=== PATIENT | female | born 1980 | race Two or more races ===

== ENCOUNTER 2024-12-23 04:28 | Day surgery (SDC) | payer OTHER ==
[2024-12-20 10:41] LABS: BASO % 0.5 % (0.1-1.2); EOS # 0.08 (0.04-0.54); HEMOGLOBIN 12.4 g/dL (11.2-15.7); LYMPH # 1.41 (1.18-3.74); MEAN CORPUSCULAR HEMOGLOBIN 28.6 pg (25.6-32.2); MONO % 6.4 % (4.7-12.5); NEUT # 5.78 (1.56-6.13); NEUT % 73.8 % (34.0-71.1); PLATELET COUNT 365 K/uL (163-369); RED BLOOD COUNT 4.33 M/uL (3.93-5.22); RED CELL DISTRIBUTION WIDTH 12.7 % (11.6-14.4)
[2024-12-20 10:43] LABS: PH,URINE 5.5 (5.0-8.0); URINE APPEARANCE Clear; URINE BILIRRUBIN Negative (NEGATIVE); URINE BLOOD Negative; URINE COLOR Dark Yellow; URINE GLUCOSE Negative (NEGATIVE); URINE KETONE Trace (NEGATIVE); URINE LEUKOCYTE Negative; URINE NITRATE Negative; URINE PROTEIN Trace (NEGATIVE)
[2024-12-20 10:44] LABS: URINE BACTERIA 390.4 uL (0.0-1933); URINE EPITHELIAL CELLS 34.1 uL (0.0-38.8); URINE RBC 37.5 uL (0.0-20.8); URINE WBC 6.9 uL (0.0-23.2)
[2024-12-20 10:46] LABS: URINE CAST 0.29 uL (0.0-1.40)
[2024-12-20 11:03] LABS: INR 1.03; PARTIAL THROMBOPLASTIN TIME 28.8 SECONDS (22.0-34.0); PROTHROMBIN TIME 11.2 SECONDS (9.0-11.5)
[2024-12-20 11:27] LABS: ALBUMIN 3.8 gm/dL (3.4-5.0); BILIRUBIN TOTAL 0.2 mg/dL (0.3-1.2); CALCIUM 9.6 mg/dL (8.5-10.1); CREATININE SERUM 0.82 mg/dL (0.55-1.02); GFR 75.39; GLOBULINA 3.6 G/DL (2.4-3.5); POTASSIUM 4.09 mEq/L (3.5-5.1); TOTAL PROTEIN 7.4 gm/dL (6.4-8.2)
[~2024-12-23 04:28] MED LIST: ATIVAN0.5 MG; BUSPIRONE HCL15 MG PO; LAMICTAL100 MG PO; LANOXIN125 MCG PO; LEXAPRO5 MG PO; NORFLEX30 MG/ML; PAMELOR25 MG PO; PAXIL20 MG; QULIPTA60 MG PO; ROSUVASTATIN CAL5 MG PO; TOPROL XL25 M1 PO; TORADOL60 MG
[2024-12-23] MEDS ORDERED: POVIDONE-IODINE 118 ML BOTT TOP ONE (11:51)
[2024-12-23] MEDS ORDERED: ONDANSETRON HCL 2 MG/ML VIAL IV ONE (13:15)
[2024-12-23] MEDS ORDERED: MORPHINE SULFATE 4 MG/ML VIAL IV ONE ×2 (14:05→15:05)
== END 2024-12-23 16:15 | disposition home or self-care (01) ==
LOC: CIR.AMB 04:28
PROVIDERS: ATTEND Obstetrics & Gynecology
DX: N93.8 Other specified abnormal uterine and vaginal bleeding (principal); N84.0 Polyp of corpus uteri; Z88.6 Allergy status to analgesic agent

== ENCOUNTER 2025-02-03 12:45 | Inpatient (IN) | payer OTHER ==
[~2025-02-03] VITALS: Ht 172.7 cm; Wt 91.6 kg
[2025-02-03 14:40] VITALS: BP 121/79
[2025-02-10] MEDS ORDERED: CEFAZOLIN SODIUM 1,000 MG VIAL ONE (08:43)
[2025-02-10] MEDS ORDERED: POVIDONE-IODINE 118 ML BOTT TOP ONE (10:12)
[2025-02-10] MEDS ORDERED: SUGAMMADEX SODIUM 200 MG/2 ML VIAL IV ONE (12:16)
[2025-02-10] MEDS ORDERED: MORPHINE SULFATE 4 MG/ML CARTRIDGE IV SCH (12:38)
[2025-02-10] MEDS ORDERED: PROMETHAZINE HCL 25 MG/ML AMPUL IV SCH (12:38)
[2025-02-10] MEDS ORDERED: ONDANSETRON HCL 2 MG/ML VIAL ONE (13:09)
[2025-02-10] MEDS ORDERED: MORPHINE SULFATE 4 MG/ML VIAL IV ONE ×3 (13:10→16:05)
[2025-02-10] MEDS ORDERED: ONDANSETRON HCL 2 MG/ML VIAL IV ONE (13:15)
[2025-02-10] MEDS ORDERED: ENALAPRILAT DIHYDRATE 1.25 MG/ML VIAL IV PRN (14:45)
[2025-02-10 16:58] LABS: BASO % 0.1 % (0.1-1.2); EOS # 0.01 (0.04-0.54); EOS % 0.1 % (0.7-7.0); LYMPH # 0.46 (1.18-3.74); LYMPH % 3.0 % (19.3-53.1); MEAN PLATELET VOLUME 9.10 fl (9.4-12.4); MONO # 0.75 (0.24-0.82); MONO % 4.9 % (4.7-12.5); NEUT # 14.15 (1.56-6.13); NEUT % 91.7 % (34.0-71.1); RED CELL DISTRIBUTION WIDTH 13.1 % (11.6-14.4)
[2025-02-10] MEDS ORDERED: ROSUVASTATIN CALCIUM 10 MG TABLET PO SCH (17:00)
[2025-02-10] MEDS ORDERED: BUSPIRONE HCL 15 MG TABLET PO SCH (17:00)
[2025-02-10 17:43] VITALS: BP 112/76
[2025-02-10 20:17] VITALS: BP 109/70
[2025-02-10] MEDS ORDERED: TRAMADOL HCL 50 MG TABLET PO SCH (21:00)
[2025-02-11] MEDS ORDERED: GABAPENTIN 300 MG CAPSULE PO SCH (01:00)
[2025-02-11 01:19] VITALS: BP 136/89
[2025-02-11] MEDS ORDERED: POLYETHYLENE GLYCOL 3350 17 GM BLIST.PACK PO SCH (05:00)
[2025-02-11] MEDS ORDERED: SIMETHICONE 125 MG CAPSULE PO SCH (05:00)
[2025-02-11] MEDS ORDERED: ROSUVASTATIN CALCIUM 10 MG TABLET PO SCH (09:00)
[2025-02-11] MEDS ORDERED: DIGOXIN 0.125 MG TABLET PO SCH (09:00)
[2025-02-11] MEDS ORDERED: METOPROLOL SUCCINATE 25 MG TAB.SR.24H PO SCH ×2 (09:00→17:00)
[2025-02-11 09:39] VITALS: BP 113/70
[2025-02-11 16:12] VITALS: BP 109/69
[2025-02-11 21:11] VITALS: BP 97/62
[2025-02-12 00:32] VITALS: BP 109/72
[2025-02-12 05:54] VITALS: BP 100/60
[2025-02-12] MEDS ORDERED: POLY119PG PO (06:34)
[2025-02-12] MEDS ORDERED: GABAPENTIN300 MG PO (06:34)
[2025-02-12] MEDS ORDERED: TRAMADOL HCL50 MG PO (06:34)
[2025-02-12] MEDS ORDERED: SIMETHICONE125 M1 PO (06:35)
[2025-02-12 08:01] VITALS: BP 96/61
== END 2025-02-12 08:43 | disposition home or self-care (01) | DRG 743 ==
LOC: OB/GYN 02-10 10:00 → O/R 02-10 10:15 → OB/GYN 02-10 12:45
PROVIDERS: ADMIT Obstetrics & Gynecology; ATTEND Obstetrics & Gynecology
PROC: 0UT70ZZ Resection of Bilateral Fallopian Tubes, Open Approach (ICD-10-PCS; 2025-02-10)
PROC: 0UT10ZZ Resection of Left Ovary, Open Approach (ICD-10-PCS; 2025-02-10)
PROC: 0UN10ZZ Release Left Ovary, Open Approach (ICD-10-PCS; 2025-02-10)
PROC: 0UT90ZZ Resection of Uterus, Open Approach (ICD-10-PCS; principal; 2025-02-10 10:00)
DX: D25.1 Intramural leiomyoma of uterus (principal); R10.2 Pelvic and perineal pain; N93.9 Abnormal uterine and vaginal bleeding, unspecified; N80.03 Adenomyosis of the uterus; N72 Inflammatory disease of cervix uteri; N80.102 Endometriosis of left ovary, unspecified depth; N83.12 Corpus luteum cyst of left ovary

== ENCOUNTER 2025-03-09 21:49 | Emergency (ER) | payer OTHER ==
[~2025-03-09] VITALS: Ht 172.7 cm; Wt 90.7 kg
[~2025-03-09 21:49] MED LIST changes: +GABAPENTIN300 MG PO; +POLY119PG PO; +SIMETHICONE125 M1 PO; +TRAMADOL HCL50 MG PO
== END 2025-03-09 22:24 | disposition home or self-care (01) ==
LOC: ER 21:51
DX: R06.89 Other abnormalities of breathing (principal); Z88.6 Allergy status to analgesic agent